=== PATIENT | female | born 2000 | race Two or more races ===

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

== ENCOUNTER → 2021-01-28 | Outpatient (CLI) | payer OTHER ==
[~2021-01-28] MED LIST: HYDR-1179 PO; ONDA4TAB7 PO
--- NOTE | 2021-01-28 08:52 | RAD ---
Ultrasound left axilla 01/28/2021. Reason for exam: Fluctuating lump. Scanning the area indicated by the patient shows a hypoechoic region immediately beneath the skin wit h some low level internal echoes. This measures about 14 x 12 x 3 mm. No deeper mass or adenopathy is seen. IMPRESSION: Nonspecific subcutaneous abnormality. This could be a lesion of skin origin such as sebac eous cyst. Electronically signed by: Stephen Brantley Jr., MD (01/28/2021 8:50 AM) [id number]
== END ==
LOC: US 07:45
PROVIDERS: ATTEND Family Medicine
DX: R22.32 Localized swelling, mass and lump, left upper limb (principal)
CPT/HCPCS: 76881